=== PATIENT | female | born 1965 | race Caucasian/White ===

== ENCOUNTER 2016-08-26 11:47 | Emergency (ER) | payer OTHER ==
--- NOTE | 2016-08-26 12:59 | DIAGNOSTIC IMAGING REPORT ---
PROCEDURE: XR CHEST 2 VIEW INDICATION: SHORTNESS OF BREATH TECHNIQUE: PA and lateral views. COMPARISON: None. FINDINGS: Lungs are clear. Heart and mediastinum are normal. Thorax is normal. IMPRESSION: 1. Negative chest.
--- NOTE | 2016-08-26 16:14 | ED CLINICAL REPORT ---
Clinical Report - Physicians/Mid Levels [facility] [address] [place] [place] [address] 08/26/2016 11:48 Patient: FLORY CALDWELL Time Seen: 12:19. Arrived- By private vehicle. Historian- patient. HISTORY OF PRESENT ILLNESS Chief Complaint: DIZZINESS LOW BLOOD PRESSURE. This started today and is still present. It was gradual in onset and has been waxing/waning. At its maximum, severity described as moderate. When seen in the E.D., severity described as moderate. Modifying factors- worsened by walking. Relieved by rest. The patient has had fatigue and generalized weakness. (Pt states feeling weak, and unable to get up from couch this morning "feeling dizziness, sleepy" Took BP and it resulted 83/56, pt took BP again and it read 97/71, still feeling weak and dizzy, Pt called her and was told to come to ED). Similar symptoms previously: Recent medical care: The patient was seen recently in a clinic. ( Had immunizations about 2 days ago and general "check up"). REVIEW OF SYSTEMS The patient has had nasal congestion and fever. No sinus drainage, cough, difficulty breathing, chest pain or abdominal pain. No vomiting, diarrhea, black stools, bloody stools or difficulty with urination. No skin rash, back pain, calf pain or headache. The patient has had difficulty with ambulation. It has been associated with weakness in both legs. All systems otherwise negative, except as recorded above. PAST HISTORY PCP: Dr Sommer PROBLEMS: Gastroenteritis. C. Difficile Colitis. Diarrhea. Hypercholesterolemia. Hypertension. Chronic Back Pain. Asthma. SURGERIES: Appendectomy. Back Surgery. Knee Surgery. Neck Surgery. Medications: Diclofenac Sodium Oral. Lisinopril Oral. Serevent Diskus Inhalation. Simvastatin Oral. Allergies: Codeine. (facial swelling). SOCIAL HISTORY Smoker- current status unknown (quit about 1 1/2 weeks ago). Occasional alcohol use. No drug use. ADDITIONAL NOTES The nursing notes have been reviewed. PHYSICAL EXAM Vital Signs: 08/26/2016 12:02 BP: 97/71. HR: 67. RR: 15. O2 saturation: 99%. Temp: 97.9 F. Pain level now: 0/10. Appearance: Alert. Patient in mild distress. Eyes: Eyes normal inspection. No scleral icterus or pale conjunctivae. ENT: Pharynx normal. No pharyngeal erythema or tonsillar exudate. The mucous membranes are not dry. Neck: Normal inspection. Neck supple. CVS: Normal heart rate and rhythm. Heart sounds normal. Pulses normal. Respiratory: No respiratory distress. Breath sounds normal. Abdomen: No visible injury. Soft and nontender. Back: Normal inspection. Skin: No cyanosis. Skin warm and dry. Normal skin color. No rash. Normal skin turgor. Skin not cool on palpation. No pallor or diaphoresis. Extremities: Extremities exhibit normal ROM. No lower extremity edema. Neuro: Oriented X 3. No motor deficit. No sensory deficit. LABS, X-RAYS, AND EKG EKG: EKG time: (12:18). Normal sinus rhythm. Rate: 60. Normal P waves. Normal SUZANNE. Normal QRS complex. Nondiagnostic Q waves in lead aVF. Normal axis. Normal ST and T waves. Non-specific ST segment / T wave abnormalities. Non-specific T wave flattening in lead III and aVF. The study has been interpreted contemporaneously by me. The EKG appears to be a good tracing. Rhythm Strip #1: Normal sinus rhythm. Regular rhythm. Narrow QRS complexes. No ectopy. Chest X-ray: No acute disease. Normal lung markings present. Normal heart size. Mediastinum normal. Great vessels normal. No infiltrate. Views: PA and lateral. Technique: good. The X-rays were interpreted contemporaneously by me. Laboratory Tests: UA-Culture if indicated: (ARNOLDO: 08/26/2016 12:30) ( MsgRcvd 08/26/2016 13:09) Final results Test Result Flag Units (Reference) URINE COLOR YELLOW URINE APPEARANCE CLEAR URINE GLUCOSE NEGATIVE (NEGATIVE) URINE BILIRUBIN NEGATIVE (NEGATIVE) URINE KETONE NEGATIVE (NEGATIVE) URINE SPECIFIC GRAVITY 1.010 (1.010-1.030) URINE PH 7.0 (5.0-8.0) URINE PROTEIN NEGATIVE (NEGATIVE) URINE UROBILINOGEN 0.2 EU/dL (0.2-1.0) URINE NITRITE NEGATIVE (NEGATIVE) URINE BLOOD NEGATIVE (NEGATIVE) URINE LEUK ESTERASE NEGATIVE (NEGATIVE) URINE RBC 0-1 rbc/hpf (0-1) URINE WBC RARE wbc/hpf (0-1) URINE EPITHELIAL CELLS RARE EPI/hpf (0-5) URINE BACTERIA NONE SEEN (NONE SEEN) URINE COMMENT CULT NOT INDICATED URINE CULTURES ARE SET-UP BASED ON THE FOLLOWING CRITERIA:POSITIVE NITRITEPOSITIVE LEUKOCYTE ESTERASEGREATER THAN 10 WHITE BLOOD CELLSMODERATE (2+) OR GREATER BACTERIA CBC w Diff: (ARNOLDO: 08/26/2016 12:00) ( IlgRcvd 08/26/2016 12:18) Final results Test Result Flag Units (Reference) WHITE BLOOD COUNT 6.3 K/uL (4.5-11.5) RED BLOOD COUNT 4.42 M/uL (4.00-5.20) HEMOGLOBIN 13.6 gm/dL (12.0-16.0) HEMATOCRIT 40.6 % (36.0-46.0) MEAN CELL VOLUME 92 fL (80-100) MEAN CORPUSCULAR HGB 31 pg (26-34) MEAN CORPUSCULAR HGB CONC 34 g/dL (31-37) RED CELL DISTRIBUTION WIDTH 13.8 % (11.6-14.8) PLATELET COUNT 304 K/uL (150-400) NEUTROPHIL % 62.2 % (50-75) LYMPH % 23.9 L % (25-40) MONO % 10.2 % (3-14) EOSINOPHIL % 3.4 % (0-4) BASOPHIL % 0.3 % (0-2) PT with INR: (ARNOLDO: 08/26/2016 12:00) ( MsgRcvd 08/26/2016 12:26) Final results Test Result Flag Units (Reference) INR 1.0 (0.8-1.2) Low Intensity Therapy: INR 1.5-2.0 PT range 18.5-23.1Mod.Intensity Therapy: INR 2.0-3.0 PT range 23.1-31.5High Intensity Therapy: INR 2.5-3.5 PT range 27.4-35.5High Intensity Therapy 2: INR 3.0-4.0 PT range 31.5-39.3 D-DIMER QUANTITATIVE 0.44 ug/mLFEU (0.27-0.52) The primary value of this quantitative assay relates toits negative predictive value (i.e. exclusion) of pulmonaryembolism/deep vein thrombosis/DIC.Elevated levels of d-dimer may also occur with:, age, cancer, inflammation, liver disease,post-op, infection, hematoma, coronary disease, peripheralarteriopathy, bleeding disorders and thrombolytic treatment.Results should be correlated with other clinical andradiological data.Testing Methodology: Latex Immunoassay BNP: (ARNOLDO: 08/26/2016 12:00) ( MsgRcvd 08/26/2016 12:38) Final results Test Result Flag Units (Reference) B-TYPE NATRIURETIC PEPTIDE 19.2 pg/ml (5-100) CHEM 13 PANEL: (ARNOLDO: 08/26/2016 12:00) ( IlgRcvd 08/26/2016 13:49) Final results Test Result Flag Units (Reference) GLUCOSE 103 mg/dL (70-110) BUN 19 H mg/dL (7-18) CREATININE 0.9 mg/dL (0.6-1.3) Estimated GFR >60 mL/min Estimated GFR- >60 mL/min Note: Persistent reduction over 3 months in eGFR<60 mL/min/1.73 m2 defines CKD. Patients with eGFR values>=60 mL/min/1.73 m2 may also have CKD if evidence ofpersistent proteinuria. Additional information may be foundat www.kidney.org. SODIUM 140 mmol/L (136-145) POTASSIUM 4.2 mmol/L (3.5-5.1) CHLORIDE 104 mmol/L (98-107) CARBON DIOXIDE 29 mmol/L (21-32) CALCIUM 8.7 mg/dL (8.5-10.1) TOTAL PROTEIN 6.9 g/dL (6.4-8.2) ALBUMIN 3.5 g/dL (3.3-5.0) BILIRUBIN, TOTAL 0.4 mg/dL (0.0-1.0) ALKALINE PHOSPHATASE 89 U/L (46-116) AST (SGOT) 20 U/L (15-37) ALT (SGPT) 53 U/L (12-78) MAGNESIUM 2.0 mg/dL (1.8-2.4) AMYLASE 68 U/L (25-115) CPK 96 U/L (24-260) TROPONIN I <0.05 ng/mL (0.00-1.5) TROPONIN REFERENCE RANGE:<0.1 NEGATIVE0.1-1.5 INDETERMINANT>1.5 POSITIVE THYROID STIMULATING HORMONE 2.308 uIU/mL (0.34-3.74) . Pulse Oximetry: 08/26/2016 12:02 O2 saturation: 99%. (FIO2 - room air). Interpretation: normal. PROGRESS AND PROCEDURES Course of Care: 1 L NS IV. 16:08 08/26/16. Patient is stable. The patient's symptoms are now gone. Physical exam findings are improved. Prerenal azotemia otherwise labs unremarkable. No dyrhythmia during entire stay. ECG unremarkable. Pt without further hypotension in the ED. She will hold her lisinopril and triampterene now. Patient/family counseled. Old ED records reviewed. Disposition: Discharged. Condition: stable and improved. CLINICAL IMPRESSION Near syncope .12 lead EKG performed. Transient, mild idiopathic hypotension. Mild dehydration Mild prerenal azotemia. INSTRUCTIONS Do not work for three days. Drink plenty of fluids. (Please stop the triamterene and lisinopril until you talk with your doctor tomorrow). Warnings: Further evaluation is necessary in order to recheck abnormal lab, obtain test results, conduct further tests and assess the possibility of serious illness. It is very important to follow up with a physician. GENERAL WARNINGS: Return or contact your physician immediately if your condition worsens or changes unexpectedly, if not improving as expected, or if other problems arise. Your Current Medications: STOP TAKING THE FOLLOWING MEDICATIONS: Lisinopril Oral. CONTINUE TAKING THE FOLLOWING MEDICATIONS: Diclofenac Sodium Oral. Serevent Diskus Inhalation. Simvastatin Oral. Follow-up: Follow up with your doctor [facility] tomorrow. (Electronically signed by Chucho Grier DO 08/27/2016 10:59)
--- NOTE | 2016-08-26 16:15 | ED NURSING NOTES ---
Clinical Report - Nurses [facility] [address] [place] [address] 08/26/2016 11:48 Patient: FLORY CALDWELL TRIAGE Triage time 1157 AM. Acuity: LEVEL 3. Chief Complaint: DIZZINESS, WEAKNESS and LIGHT HEADED. Alert. No acute distress. ANDRES COMA SCORE: [place] Coma Scale: 15- eyes open spontaneously (4); best verbal response- oriented x 4 (5); best motor response- obeys commands (6). --12:07 Marya Amaya R.N. 12:02 08/26/16. BP: 97/71 (regular adult cuff) taken on the left arm, via an automated monitor, while lying. HR: 67. RR: 15. O2 saturation: 99% on room air. Temp: 97.9 F. Pain level now: 0/10. --12:07 Marya Amaya R.N. Weight: 84.8 kg stated. Height/Length: 64 inches Per Patient. BMI: 32.1. --12:00 Marya Amaya R.N. Medications Diclofenac Sodium Oral. Lisinopril Oral. Serevent Diskus Inhalation. Simvastatin Oral. --11:59 Marya Amaya R.N. Allergies Codeine. (facial swelling) --11:59 Marya Amaya R.N. History Arrived by private vehicle. Historian: patient. Accompanied by family. Primary physician (Dr. Sommer). ( Pt states feeling weak, and unable to get up from couch this morning "feeling dizziness, sleepy" Took BP and it resulted 83/56, pt took BP again and it read 97/71, still feeling weak and dizzy, Pt called her and was told to come to ED). This started today. This is a new problem. (Today). She has had weakness. No nausea, trouble walking, headache or vomiting. Treatment TRAINING MGR: None. SOCIAL HX: Former smoker, end date 08/12/2016. Occasional alcohol use; consumes one beer a week. No drug use. No infectious disease exposure. ABUSE ASSESSMENT: No report of abuse. SELF HARM ASSESSMENT: A self harm assessment was performed. The patient answered "no" to the question "Do you have thoughts of harming or killing yourself?" and "Have you recently had thoughts about harming or killing others?". FALL RISK ASSESSMENT: Fall risk assessment completed. No fall risk identified. NUTRITIONAL RISK ASSESSMENT: The nutritional risk assessment revealed no deficiencies. FUNCTIONAL ASSESSMENT: Functional assessment: no impairments noted. LEARNING NEEDS ASSESSMENT: The learning needs assessment revealed no barriers. SKIN INTEGRITY ASSESSMENT: Skin integrity risk assessment completed. No skin integrity risk identified. --12:07 Marya Amaya R.N. PROBLEMS: Gastroenteritis. C. Difficile Colitis. Diarrhea. LNMP - Last Normal Menstrual Period. Hypercholesterolemia. Hypertension. Back Pain. Asthma. --12:00 Marya Amaya R.N. ADDITIONAL SURGERIES: Appendectomy. Back Surgery. Knee Surgery. Neck Surgery. --12:00 Marya Amaya R.N. Interventions ID band on patient. --12:07 Marya Amaya R.N. PHYSICAL ASSESSMENT To room via wheelchair. GENERAL / NEURO / PSYCH: Oriented X 4. Appears in no acute distress. Alert. Speech within normal limits. HEENT: No facial asymmetry noted. Pupils equal, round and reactive to light. RESPIRATORY: Breath sounds within normal limits. Respirations not labored. CVS: Capillary refill less than 2 seconds. GI / : Abdomen soft and nontender. SKIN: Skin is warm and dry. --12:09 Marya Amaya R.N. NURSING PROGRESS NOTES 12:11 08/26/2016 Site #1 started via IV in the left forearm with an 20g angiocath; one attempt. Blood drawn: rainbow set. Labeled in the presence of the patient and sent to the lab. Saline lock flushed. --12:11 Marya Amaya R.N. The initial plan of care for this patient has been created This plan of care was discussed with the patient. Monitoring of patient in place. EKG time: (1212 PM). EKG was performed by a tech. Patient ID band checked for patient name, birthdate and medical record number: patient confirmed. Blood samples drawn from the left forearm by nurse per protocol ; labeled in presence of the patient and sent to lab: rainbow set. Patient gowned. Reassurance given. The patient is calm. GENERAL / NEURO / PSYCH: Patient is calm and cooperative. Affect appears normal. Alert. Two patient identifiers checked. Call light placed in reach. Side rails up x 2. Brakes of bed on. Brakes of chair on. --12:12 Marya Amaya R.N. <<STRICKEN ENTRY-- EKG time: (12:18 PM). EKG was performed by a tech and shown to the ED physician. --12:21 Brittani Ace --END STRIKE>> Correction --14:25 Brittani Ace 12:49 08/26/2016 Started bag #1 1000 mL IV Fluids IV NS (Saline); at 999 mL/hr over 30 minute(s) via site #1 via dial-a-flow. Allergies verified and confirmed 5 rights. IV patency established. IV site checked: no pain, redness, or swelling. IV flushed thoroughly pre- and post-medication administration. --12:49 Marya Amaya R.N. 12:45 late entry - PM. Cardiac rhythm: normal sinus rhythm. Monitoring of patient in place. Reassurance given. The patient is calm. ( Pt still feeling "dizzy with weakness" just returned from Xray, fluids infusing, will monitor.). GENERAL / NEURO / PSYCH: Patient is calm and cooperative. Affect appears normal. Alert. RESPIRATORY: Denies difficulty breathing. No respiratory distress. CVS: Denies chest pain. SKIN: Skin is warm and dry. Patient returned from radiology by stretcher. Two patient identifiers checked. Call light placed in reach. Side rails up x 2. Bed placed in lowest position. Brakes of bed on. Brakes of chair on. --12:58 Marya Amaya R.N. 12:45 08/26/16. BP: 83/50 (regular adult cuff) taken on the left arm, via an automated monitor, while lying. HR: 63. RR: 15. O2 saturation: 97% on room air. Pain level now: 0/10. --12:58 Marya Amaya R.N. 13:28 08/26/2016 IV Fluids IV NS via IV site #1 Rate Changed: bag #1 decreased to 250 mL/hr via IV pump. IV patency established. IV site checked: no pain, redness, or swelling. IV flushed thoroughly. --13:28 Francesca Jara R.N. 14:00 08/26/16. BP: 102/70 taken while lying. HR: 78. --14:26 Brittani Ace EKG time: (12:18 PM). EKG was performed by a tech and shown to the ED physician. --14:28 Brittani Ace 14:09 08/26/16. BP: 109/80 (regular adult cuff) taken on the left arm, via an automated monitor, while sitting. HR: 87. --14:28 Brittani Ace 14:11 08/26/16. BP: 106/72 (regular adult cuff) taken on the left arm, via an automated monitor, while standing. HR: 80 (regular). --14:29 Brittani Ace 15:00 late entry -. Cardiac rhythm: normal sinus rhythm. Reassurance given. GENERAL / NEURO / PSYCH: Patient is calm and cooperative. Alert. Oriented X 4. CVS: Denies chest pain. --16:24 Marya Amaya R.N. 15:00 08/26/16. BP: 127/80. HR: 66. RR: 15. O2 saturation: 99% on room air. Temp: 98.2 F (oral). Pain level now: 0/10. --16:24 Marya Amaya R.N. DISPOSITION / DISCHARGE 16:16 08/26/2016 IV Fluids IV NS Response: no adverse reaction pain is improving. Symptoms have improved the patient feels better. --16:26 Marya Amaya R.N. 16:20 08/26/2016 IV Fluids IV NS Discontinued: bag #2 completed upon discharge. Total amount infused: 1000 mL. IV patency established. IV site checked: no pain, redness, or swelling. IV flushed thoroughly. --16:25 Marya Amaya R.N. 16:21 08/26/2016 Site #1 removed upon discharge. Catheter intact. Bandage applied. --16:26 Marya Amaya R.N. Cardiac rhythm: normal sinus rhythm. Departure time: 1620 PM. Condition at departure: improved and stable. The goals identified in the patient's plan of care were met. No learning barriers present. Discharge instructions provided and reviewed with the patient and spouse. Reviewed need for increased fluid intake. Work note given. Patient verbalized understanding. Written instructions provided in Bengali. No warning instructions, medication instructions, treatment instructions or referrals given to the patient. The patient was discharged by the physician. She was discharged home and accompanied by spouse. She left the Emergency Department ambulatory and via private vehicle. Spouse driving. FALL RISK ASSESSMENT: Fall risk assessment completed. No fall risk identified. --16:27 Marya Amaya R.N. 16:15 08/26/16. BP: 117/80 taken on the right arm, while sitting. HR: 68. RR: 12. O2 saturation: 99% on room air. Temp: 97.8 F (oral). Pain level now: 0/10. --16:27 Marya Amaya R.N. Locked/Released at 08/26/2016 16:28 by Marya Amaya R.N.
--- NOTE | 2016-08-26 16:15 | ED ORDER SUMMARY ---
..... Patient: FLORY CALDWELL OrderSheet [facility] VisitID: [id number] [address] [place] [address] 51y, F Registration Date/Time: 08/26/2016 ORDER SHEET Weight: 84.8 kg (stated) Allergies: Codeine GENERAL ORDERS: Credit Negotiator (Continuous) (12:08[facility]26/2016 [facility]) (12:12 EHassan R.N.) UA-Culture if indicated Urgent (12:08/26/2016 [facility] DO) (12:12 EHassan R.N.) Cardiac Panel Stat (12:08/26/2016 [facility] (12:12 EHassan R.N.) BNP Urgent ([facility]/2016 [facility] (12:12 EHassan R.N.) D-Dimer Urgent (12:08/26/2016 [facility] ) (12:12 EHassan R.N.) Amylase Urgent (12:08/26/2016 [facility] DO) (12:12 EHassan R.N.) TSH Urgent (12:08/26/2016 [facility]) (12:12 EHassan R.N.) PT with INR Urgent (12:08/26/2016 [facility] ) (12:12 EHassan R.N.) Pulse oximeter (12:08/26/2016 [facility] (12:12 EHassan R.N.) EKG - ER Stat (12:08/26/2016 [facility] (12:12 EHassan R.N.) Vitals (12:08/26/2016 [facility]) (12:12 EHassan R.N.) Vitals - Orthostatic (12:08/26/2016 [facility]) (12:12 EHassan R.N.) Chest 2V Urgent (12:24 08/26/2016 [facility]) (Ack 12:26 LTapper) (16:26 EHassan R.N.) MEDICATION ORDERS: IV FLUIDS: IV NS : initial bolus 500 mL (1000 mL/hr), then 250 mL/hr for X2 (NOW) (12:10 08/26/2016 Navya ANG) (12:49 Bryan Walden) ORDER SHEET NOTES: [Electronically signed by Marya Amaya R.N. (16:08/26/2016)] [Electronically signed by Chucho Grier DO (10:59 08/27/2016)] [Electronically locked/signed by Marya Amaya R.N. (16:08/26/2016)]
--- NOTE | 2016-08-26 16:15 | ED ORDER SUMMARY ---
..... Patient: FLORY CALDWELL OrderSheet [facility] VisitID: [id number] [address] [place] [address] 51y, F Registration Date/Time: 08/26/2016 ORDER SHEET Weight: 84.8 kg (stated) Allergies: Codeine GENERAL ORDERS: Build And Deployment Engineer (Continuous) ([facility]26/2016 [facility] (12:12 EHassan R.N.) UA-Culture if indicated Urgent (12:08/26/2016 PHarchinson DO) (12:12 EHassan R.N.) Cardiac Panel Stat ([facility]/2016 [facility] ) (12:12 EHassan R.N.) BNP Urgent ([facility]26/2016 [facility] (12:12 EHassan R.N.) D-Dimer Urgent (12:08/26/2016 [facility] ) (12:12 EHassan R.N.) Amylase Urgent (12:08/26/2016 PHarchinson DO) (12:12 EHassan R.N.) TSH Urgent (12:08/26/2016 [facility]) (12:12 EHassan R.N.) PT with INR Urgent (12:08/26/2016 [facility] (12:12 EHassan R.N.) Pulse oximeter ([facility]:08/26/2016 [facility] ) (12:12 EHassan R.N.) EKG - ER Stat (12:08/26/2016 [facility] ) (12:12 EHassan R.N.) Vitals (12:08/26/2016 [facility]) (12:12 EHassan R.N.) Vitals - Orthostatic (12:08/26/2016 [facility]) (12:12 EHassan R.N.) Chest 2V Urgent (12:24 08/26/2016 [facility]) (Ack 12:26 LTapper) (16:26 EHassan R.N.) MEDICATION ORDERS: IV FLUIDS: IV NS : initial bolus 500 mL (1000 mL/hr), then 250 mL/hr for X2 (NOW) (12:10 08/26/2016 Navya ANG) (12:49 Bryan Walden) ORDER SHEET NOTES: [Electronically signed by Marya Amaya R.N. (16:08/26/2016)] [Electronically signed by Chucho Grier DO (10:59 08/27/2016)] [Electronically locked/signed by Marya Amaya R.N. (16:08/26/2016)]
--- NOTE | 2016-08-27 11:00 | ED DISCHARGE INSTRUCTIONS ---
Patient: FLORY CALDWELL General Instructions [facility] VisitID: [id number] [place] [address] 51y, F Registration Date/Time: 08/26/2016 Near syncope .12 lead EKG performed. Transient, mild idiopathic hypotension. Mild dehydration Mild prerenal azotemia. INSTRUCTIONS Do not work for three days. Drink plenty of fluids. (Please stop the triamterene and lisinopril until you talk with your doctor tomorrow). Warnings: Further evaluation is necessary in order to recheck abnormal lab, obtain test results, conduct further tests and assess the possibility of serious illness. It is very important to follow up with a physician. GENERAL WARNINGS: Return or contact your physician immediately if your condition worsens or changes unexpectedly, if not improving as expected, or if other problems arise. Your Current Medications: STOP TAKING THE FOLLOWING MEDICATIONS: Lisinopril Oral. CONTINUE TAKING THE FOLLOWING MEDICATIONS: Diclofenac Sodium Oral. Serevent Diskus Inhalation. Simvastatin Oral. Follow-up: Follow up with your doctor [facility] tomorrow. ADDITIONAL INFORMATION Near-Fainting:Uncertain Cause Fainting (syncope) is a temporary loss of consciousness ("passing out"). It occurs when blood flow to the brain is reduced. Near-fainting ("near-syncope") is like fainting, but you do not fully "pass out." The common minor causes of near fainting include sudden fear, pain, emotional stress, overexertion, or quickly standing up after sitting or lying for a long time. The more serious causes for near fainting are due to either a very slow or very fast heart beat, dehydration, anemia, blood loss, problems related to the heart, or taking too much high blood pressure medicine. The exact cause of your episode is not certain. More tests may be required. Therefore, it is important that you follow up with your doctor as advised. Home Care: 1) Rest today. Resume your normal activities as soon as you are feeling back to normal. 2) If you become light-headed or dizzy, lie down right away or sit with your head between your knees. 3) Because we do not know the exact cause of your near fainting spell, another spell could occur without warning. Therefore, do not drive a car or use dangerous equipment. D o not take a bath alone (use a shower instead). Do not swim alone. You can resume these activities when your doctor says that you are no longer in danger of having a near fainting spell. 4) Stay well hydrated by drinking enough fluid each day. Follow Up with your doctor as instructed. Get Prompt Medical Attention if any of the following occur: -- Another fainting spell occurs, and it is not explained by the common causes listed above -- Chest, arm, neck, jaw, back or abdominal pain -- Shortness of breath -- Weakness, tingling or numbness in one side of the face, one arm or leg -- Slurred speech, confusion, trouble walking or seeing -- Seizure -- Blood in vomit, stools (black or red color) -- (In women) unexpected vaginal bleeding Dehydration (Adult) Dehydration occurs when your body loses too much fluid. This may be the result of vomiting a lot or from diarrhea,sweating a lot, or a high fever. It may also happen if you dont drink enough fluid when youre sick. Misuse of diuretics (water pills) can also be a cause. Symptoms include thirst and feeling dizzy, weak, fatigued, or very drowsy. The diet described below is usually enough to treat most cases. Sometimes you may needmedicine. Home Care Follow these guidelines for home care: Drink at least 12 8-ounce glasses of fluid every day to overcome the dehydration. Fluid may include water; orange juice; lemonade; apple, grape, and cranberry juice; clear fruit drinks; electrolyte replacement and sports drinks; and teas and coffee without caffeine. If you have been diagnosed with a kidney disease, ask your doctor how much and what types of fluids you should drink to prevent dehydration. If you have kidney disease, drinking too much fluid can cause it build up in the your body and be dangerous to your health. If you have fever, muscle aching, or headache from a viral syndrome, you may useacetaminophen or ibuprofen, unless another medicine was prescribed for this.If you have chronic liver or kidney disease or ever had a stomach ulcer or GI bleeding, talk with your doctor before using these medicines. Don't take aspirin if you are younger than 18 and are ill with a fever.Aspirin raises the chance forsevere liver injury. Follow-up care Follow up with your health care provider if you don't get better in the next 24 to 48 hours. When to seek medical care Get prompt medical attention if any of theseoccur: Continued vomiting (cant keep liquids down) Frequent diarrhea (more than 5 times a day); blood (red or black color) or mucus in diarrhea Blood in vomit or stool Swollen abdomen or increasing abdominal pain Weakness, dizziness, or fainting Unusually drowsy or confused Reduced urine output or extreme thirst Fever of 100.4 F (38 C) oral or higher that does not get better with fever medication Hypotension (All Causes) The normal blood pressure range is between 90/60 and 140/80. Low blood pressure (also calledhypotension) is a decrease in blood pressure from what is normal for you. Low blood pressure can cause symptoms of dizziness, lightheadedness or fainting. Some of the causes for low blood pressure: Certain medicines, including: High blood pressure pills Diuretics (water pills) Some heart medicines Some antidepressants Pain, anxiety, sedative, and sleeping medicines Dehydration, severe infection, fever Blood loss (for example, bleeding from the stomach or intestines) Congestive heart failure (CHF) Change in heart rate or rhythm (arrhythmia) Orthostatic hypotension(from a sudden change in body position from lying down to standing) Alcohol or drug intoxication Altered reflexes of the blood vessels and heart responsible for keeping the blood pressure normal with changes of position Treatment will depend on the cause of your low blood pressure. Home Care: Rest until symptoms improve. Follow the treatment plan described by your doctor. Follow Up with your doctor or as advised by our staff. Get Prompt Medical Attention if any of the following occur: Dizziness, lightheadedness, or fainting Black or red color in your stools or vomit Shortness of breath or difficulty breathing Chest, shoulder, arm, neck or upper back pain Abdominal pain, persistent diarrhea or vomiting Inability to eat or drink Fever of 100.4F (38C) or higher, or as directed by your healthcare provider Urinary burning or foul-smelling urine You have been given the following additional information: Near Syncope, Unknown Dehydration (Adult) Hypotension, All Causes Do not work for three days. (Electronically signed by Chucho Grier DO 08/27/2016 10:59)
--- NOTE | 2016-08-27 11:00 | ED MAR SUMMARY ---
..... Medication Administration Record [facility] [address] [place] [address] Patient: FLORY CALDWELL Visit ID: [id number] 51y, F Weight: 84.8 kg Height/Length: 64 in BMI: 32.1 ALLERGIES: Codeine Start 12:49 08/26/2016 Marya Amaya RAnnemarieNAnnemarie, Stop 16:20 08/26/2016 Marya Amaya R.NAnnemarie Medication Administered: IV NS (SALINE), Dose: IV Fluids over 30 minute(s), Rate: 999 mL/hr, Dispensed: 1000 mL bag, Site: #1 left forearm. Medication Ordered: IV NS : initial bolus 500 mL (1000 mL/hr), then 250 mL/hr for X2 (NOW).
--- NOTE | 2016-08-27 11:00 | ED MAR SUMMARY ---
..... Medication Administration Record [facility] [address] [place] [address] Patient: FLORY CALDWELL Visit ID: [id number] 51y, F Weight: 84.8 kg Height/Length: 64 in BMI: 32.1 ALLERGIES: Codeine Start 12:49 08/26/2016 Marya Amaya RAnnemarieNAnnemarie, Stop 16:20 08/26/2016 Marya Amaya R.NAnnemarie Medication Administered: IV NS (SALINE), Dose: IV Fluids over 30 minute(s), Rate: 999 mL/hr, Dispensed: 1000 mL bag, Site: #1 left forearm. Medication Ordered: IV NS : initial bolus 500 mL (1000 mL/hr), then 250 mL/hr for X2 (NOW).
--- NOTE | 2016-08-27 11:00 | ED MED RECONCILIATION SUMMARY ---
Patient: FLORY CALDWELL Medication Reconciliation Report [facility] VisitID: [id number] [address] [place] [address] 51y, F Registration Date/Time: 08/26/2016 Weight: 84.8 kg Height/Length: 64 in. BMI: 32.1 ALLERGIES: Codeine The patient's Home Medications are listed below: STOP TAKING THE FOLLOWING MEDICATIONS: Lisinopril Oral CONTINUE TAKING THE FOLLOWING MEDICATIONS: Diclofenac Sodium Oral Serevent Diskus Inhalation Simvastatin Oral The source(s) of the original Home Medication information: Not obtained. The following Medications were given to the patient in the Emergency Department: IV NS IV Fluids bolus 0, then 999 mL/hr, administered: 08/26/2016 12:49:00 PM The following Medications were prescribed to the patient: None.
--- NOTE | 2016-08-27 11:00 | ED MED RECONCILIATION SUMMARY ---
Patient: FLORY CALDWELL Medication Reconciliation Report [facility] VisitID: [id number] [address] [place] [address] 51y, F Registration Date/Time: 08/26/2016 Weight: 84.8 kg Height/Length: 64 in. BMI: 32.1 ALLERGIES: Codeine The patient's Home Medications are listed below: STOP TAKING THE FOLLOWING MEDICATIONS: Lisinopril Oral CONTINUE TAKING THE FOLLOWING MEDICATIONS: Diclofenac Sodium Oral Serevent Diskus Inhalation Simvastatin Oral The source(s) of the original Home Medication information: Not obtained. The following Medications were given to the patient in the Emergency Department: IV NS IV Fluids bolus 0, then 999 mL/hr, administered: 08/26/2016 12:49:00 PM The following Medications were prescribed to the patient: None.
== END 2016-08-26 16:20 | disposition home or self-care (01) ==
LOC: ED SRH 11:47
DX: R55 Syncope and collapse (principal); I95.0 Idiopathic hypotension; E86.0 Dehydration; R39.2 Extrarenal uremia; I10 Essential (primary) hypertension; Z79.899 Other long term (current) drug therapy; Z88.5 Allergy status to narcotic agent
CPT/HCPCS: 90004; 90100; 90616; 91320; 91556; 92530; 92610; 92720; 93140; 94060; 95059